=== PATIENT | female | born 1930 | race African-American/Black ===

== ENCOUNTER 2016-08-26 02:10 | Emergency (ER) | payer OTHER, MEDICAID ==
[~2016-08-26] VITALS: Ht 170.2 cm; Wt 71.0 kg
[~2016-08-26 02:10] MED LIST: INSU100V3
[2016-08-26 02:45] VITALS: BP 120/65
[2016-08-26 03:22] LABS: BASOPHILS % 0.8 % (0.0-2.0); EOSINOPHILS % 5.5 % (0.0-5.0); HEMATOCRIT. 33.8 % (36.0-48.0); HEMOGLOBIN. 11.1 g/dL (12.0-16.0); LYMPHOCYTES % 30.4 % (20.0-50.0); MEAN CORPUSCULAR HEMOGLOBIN 30.1 pg (28.0-32.0); MEAN CORPUSCULAR HGB CONC 32.9 g/dL (31.0-37.0); MEAN CORPUSCULAR VOLUME 91.4 fL (81.0-99.0); MEAN PLATELET VOLUME 9.7 fl (7.4-10.4); MONOCYTES % 6.7 % (2.0-8.0); NEUTROPHILS % 56.6 % (40.0-76.0); PLATELET 177 x1000/uL (130-400); RED CELL DISTRIBUTION WIDTH 15.8 % (11.6-14.6); WHITE BLOOD COUNT 5.6 x1000/uL (4.5-11.0)
[2016-08-26 03:30] LABS: ALANINE AMINOTRANSFERASE 19 IU/L (13-61); ALBUMIN 3.5 g/dL (3.4-5.0); ANION GAP 15; CALCIUM 8.2 mg/dL (8.5-10.1); CARBON DIOXIDE 31 mEq/L (21-32); CHLORIDE 98 mEq/L (98-107); INDEX HEMOLYSI 1 (1-3); INDEX ICTERIC 1 (1-4); INDEX LIPEMIC 1 (1-3); UREA NITROGEN BLOOD 50 mg/dL (7-21); eGFR 6 mL/min (>60)
== END 2016-08-26 03:35 | disposition home or self-care (01) ==
LOC: ER 02:10
DX: R51 Headache (principal); I12.0 Hypertensive chronic kidney disease with stage 5 chronic kidney disease or end stage renal disease; N18.6 End stage renal disease; Z99.2 Dependence on renal dialysis; E11.22 Type 2 diabetes mellitus with diabetic chronic kidney disease; Z88.6 Allergy status to analgesic agent; Z79.899 Other long term (current) drug therapy
CPT/HCPCS: 36415; 71010; 80053; 85025; 93005; 99285

== ENCOUNTER 2016-09-07 09:55 | Emergency (ER) | payer OTHER, MEDICAID ==
[~2016-09-07] VITALS: Ht 165.1 cm; Wt 68.0 kg
[2016-09-07 10:53] LABS: HEMATOCRIT. 24.6 % (36.0-48.0); HEMOGLOBIN. 8.2 g/dL (12.0-16.0); MEAN CORPUSCULAR HEMOGLOBIN 29.9 pg (28.0-32.0); MEAN CORPUSCULAR HGB CONC 33.3 g/dL (31.0-37.0); MEAN CORPUSCULAR VOLUME 89.9 fL (81.0-99.0); MEAN PLATELET VOLUME 7.9 fl (7.4-10.4); PLATELET 231 x1000/uL (130-400); RED BLOOD CELL COUNT 2.73 mill/uL (4.2-5.4); RED CELL DISTRIBUTION WIDTH 16.4 % (11.6-14.6); WHITE BLOOD COUNT 9.5 x1000/uL (4.5-11.0)
[2016-09-07 10:55] LABS: DIFFERENTIAL COMMENT 1
[2016-09-07 11:04] LABS: ALANINE AMINOTRANSFERASE 37 IU/L (13-61); ALBUMIN 2.4 g/dL (3.4-5.0); ANION GAP 18; CALCIUM 8.5 mg/dL (8.5-10.1); CARBON DIOXIDE 27 mEq/L (21-32); CHLORIDE 99 mEq/L (98-107); INDEX HEMOLYSI 1 (1-3); INDEX ICTERIC 1 (1-4); INDEX LIPEMIC 1 (1-3); UREA NITROGEN BLOOD 18 mg/dL (7-21); eGFR 14 mL/min (>60)
[2016-09-07 11:05] LABS: PROTHROMBIN TIME 10.7 sec
[2016-09-07 11:09] LABS: NT PRO B-TYPE NATRIURETIC PEP 11716 pg/mL (5-125); TROPONIN I 0.21 ng/mL (0.00-0.04)
[2016-09-07 11:25] LABS: ANISOCYTOSIS 1+; NUCLEATED RED BLOOD CELLS 1 /100 WBC; PLATELET ESTIMATE NORMAL
[2016-09-07] MEDS ORDERED: CLONIDINE 0.1MG TABLET PO ONE (15:15)
[2016-09-07 15:41] VITALS: BP 156/78
== END 2016-09-07 15:45 | disposition home or self-care (01) ==
LOC: ER 12:03
DX: R00.0 Tachycardia, unspecified (principal); E11.9 Type 2 diabetes mellitus without complications; I12.9 Hypertensive chronic kidney disease with stage 1 through stage 4 chronic kidney disease, or unspecified chronic kidney disease; Z99.2 Dependence on renal dialysis; Z90.710 Acquired absence of both cervix and uterus; Z90.49 Acquired absence of other specified parts of digestive tract; Z88.5 Allergy status to narcotic agent; Z88.6 Allergy status to analgesic agent
CPT/HCPCS: 36415; 71010; 80053; 83880; 84484; 85025; 85610; 93005; 99285

== ENCOUNTER 2018-12-14 08:06 | Emergency (ER) | payer OTHER, MEDICAID ==
[~2018-12-14] VITALS: Ht 162.6 cm; Wt 65.0 kg
[2018-12-14 10:41] LABS: BASOPHILS % 0.6 % (0.0-2.0); EOSINOPHILS % 3.7 % (0.0-5.0); HEMATOCRIT. 36.7 % (36.0-48.0); HEMOGLOBIN. 12.3 g/dL (12.0-16.0); LYMPHOCYTES % 29.3 % (20.0-50.0); MEAN CORPUSCULAR VOLUME 89.5 fL (81.0-99.0); MEAN PLATELET VOLUME 9.2 fl (7.4-10.4); MONOCYTES % 6.2 % (2.0-8.0); NEUTROPHILS % 60.2 % (40.0-76.0); PLATELET 170 x1000/uL (130-400); RED CELL DISTRIBUTION WIDTH 16.1 % (11.6-14.6)
[2018-12-14 10:44] LABS: CHLORIDE 102 mEq/L (98-107)
[2018-12-14 11:40] VITALS: BP 170/77
== END 2018-12-14 12:55 | disposition short-term general hospital (02) ==
LOC: ER 08:06 → CANBEDREQ 13:53
DX: R55 Syncope and collapse (principal); E11.22 Type 2 diabetes mellitus with diabetic chronic kidney disease; I12.0 Hypertensive chronic kidney disease with stage 5 chronic kidney disease or end stage renal disease; N18.6 End stage renal disease; Z99.2 Dependence on renal dialysis; Z90.49 Acquired absence of other specified parts of digestive tract; Z90.710 Acquired absence of both cervix and uterus
CPT/HCPCS: 36415; 71045; 84484; 93005; 99285

== ENCOUNTER 2020-07-26 09:27 | Inpatient (IN) | payer OTHER, MEDICAID ==
[2020-07-26] VITALS (14 sets, daily range): BP systolic 137–180; BP diastolic 67–89
[~2020-07-26] VITALS: Ht 165.1 cm; Wt 65.8 kg
[2020-07-26 10:06] LABS: BASOPHILS % 1.2 % (0.0-2.0); EOSINOPHILS % 4.9 % (0.0-5.0); HEMATOCRIT. 39.5 % (36.0-48.0); HEMOGLOBIN. 13.1 g/dL (12.0-16.0); LYMPHOCYTES % 27.8 % (20.0-50.0); MEAN CORPUSCULAR HEMOGLOBIN 30.1 pg (28.0-32.0); MEAN PLATELET VOLUME 10.4 fl (7.4-10.4); MONOCYTES % 5.5 % (2.0-8.0); NEUTROPHILS % 60.6 % (40.0-76.0); PLATELET 198 x1000/uL (130-400); RED BLOOD CELL COUNT 4.34 mill/uL (4.2-5.4); RED CELL DISTRIBUTION WIDTH 16.1 % (11.6-14.6)
[2020-07-26 10:14] LABS: CHLORIDE 103 mEq/L (98-107)
[2020-07-26 10:15] LABS: INR 1.1; PROTHROMBIN TIME 11.3 sec (9.6-11.0)
[2020-07-26 10:18] LABS: ETHANOL BLOOD < 10 mg/dL
[2020-07-26 10:21] LABS: LDL CHOLESTEROL 64 mg/dL (5-100)
[2020-07-26] MEDS ORDERED: WATER FOR INJECTION STERILE IV NR (10:45)
[2020-07-26] MEDS ORDERED: ALTEPLASE IV NR (10:45)
[2020-07-26] MEDS ORDERED: ALTEPLASE 100MG/VIAL IV NR (10:45)
[2020-07-26] MEDS ORDERED: *NO ASPIRIN X 24 HOURS XX SCH (11:00)
[2020-07-26] MEDS ORDERED: IOHEXOL-300 100 ML BOTTLE ONE (13:02)
[2020-07-26] MEDS ORDERED: ACETAMINOPHEN 325MG TABLET PO PRN (18:15)
[2020-07-26] MEDS ORDERED: DIPHENHYDRAMINE 50MG/ML VIAL IV PRN (18:15)
[2020-07-26] MEDS ORDERED: MAGNESIUM/ALUMINUM HYDROXIDE/SIMETHICONE 30ML UDC PO PRN (18:15)
[2020-07-26] MEDS ORDERED: ONDANSETRON HCL 4MG/2ML INJ IV PRN (18:15)
[2020-07-26] MEDS ORDERED: AMLO10TA80 MT (18:53)
[2020-07-26] MEDS ORDERED: ASCO125T PO (18:53)
[2020-07-26] MEDS ORDERED: LISI-186 MT (18:53)
[2020-07-26] MEDS: FAMOTIDINE 20MG TABLET PO SCH (21:00)
[2020-07-26] MEDS: SODIUM CHLORIDE 0.9% INJ 3ML FLUSH IVF SCH (22:00)
[2020-07-27] VITALS (63 sets, daily range): BP systolic 112–178; BP diastolic 53–108
[2020-07-27] MEDS ORDERED: DEXTROSE 50% WATER 50ML SYRINGE IV PRN (10:15)
[2020-07-27] MEDS: BLOOD SUGAR DIAGNOSTIC STRIP TEST SCH ×2 (12:11→17:06)
[2020-07-27] MEDS: INSULIN LISPRO 100 UNITS/ML SUBCUT SCH ×2 (12:40→17:17)
[2020-07-27] MEDS: SODIUM CHLORIDE 0.9% INJ 3ML FLUSH IVF SCH ×2 (14:00→22:00)
[2020-07-27] MEDS: ACETAMINOPHEN 325MG TABLET PO PRN ×2 (17:17→18:35)
[2020-07-27] MEDS: AMLODIPINE 5MG TABLET PO SCH (22:11)
[2020-07-27] MEDS: FAMOTIDINE 20MG TABLET PO SCH (22:14)
[2020-07-28] VITALS (66 sets, daily range): BP systolic 114–199; BP diastolic 52–123
[2020-07-28 05:44] LABS: BASOPHILS % 0.4 % (0.0-2.0); EOSINOPHILS % 5.7 % (0.0-5.0); HEMATOCRIT. 39.4 % (36.0-48.0); HEMOGLOBIN. 12.7 g/dL (12.0-16.0); LYMPHOCYTES % 33.4 % (20.0-50.0); MEAN CORPUSCULAR HEMOGLOBIN 29.3 pg (28.0-32.0); MEAN CORPUSCULAR VOLUME 91.5 fL (81.0-99.0); MEAN PLATELET VOLUME 8.9 fl (7.4-10.4); MONOCYTES % 6.7 % (2.0-8.0); NEUTROPHILS % 53.8 % (40.0-76.0); PLATELET 196 x1000/uL (130-400); RED BLOOD CELL COUNT 4.31 mill/uL (4.2-5.4); RED CELL DISTRIBUTION WIDTH 16.3 % (11.6-14.6)
[2020-07-28] MEDS: AMLODIPINE 5MG TABLET PO SCH ×2 (07:58→21:36)
[2020-07-28] MEDS: ACETAMINOPHEN 325MG TABLET PO PRN (07:58)
[2020-07-28] MEDS: ASPIRIN 81MG EC TABLET PO SCH (09:49)
[2020-07-28] MEDS: FAMOTIDINE 20MG TABLET PO SCH (21:35)
[2020-07-29] VITALS (12 sets, daily range): BP systolic 99–164; BP diastolic 52–102
[2020-07-29 05:52] LABS: BASOPHILS % 0.4 % (0.0-2.0); EOSINOPHILS % 3.7 % (0.0-5.0); HEMOGLOBIN. 11.8 g/dL (12.0-16.0); LYMPHOCYTES % 28.1 % (20.0-50.0); MEAN CORPUSCULAR HEMOGLOBIN 29.4 pg (28.0-32.0); MEAN CORPUSCULAR VOLUME 90.2 fL (81.0-99.0); MEAN PLATELET VOLUME 9.1 fl (7.4-10.4); MONOCYTES % 5.8 % (2.0-8.0); PLATELET 187 x1000/uL (130-400); RED CELL DISTRIBUTION WIDTH 16.7 % (11.6-14.6)
[2020-07-29] MEDS: ASPIRIN 81MG EC TABLET PO SCH (08:22)
[2020-07-29] MEDS: AMLODIPINE 5MG TABLET PO SCH ×2 (08:22→21:00)
[2020-07-29] MEDS: FAMOTIDINE 20MG TABLET PO SCH (21:45)
[2020-07-30] VITALS (7 sets, daily range): BP systolic 97–156; BP diastolic 59–104
[2020-07-30] MEDS: ASPIRIN 81MG EC TABLET PO SCH ×2 (08:29→09:00)
[2020-07-30] MEDS: AMLODIPINE 5MG TABLET PO SCH ×2 (08:29→21:00)
[2020-07-30] MEDS: FAMOTIDINE 20MG TABLET PO SCH (21:00)
== END 2020-07-30 23:18 | disposition short-term general hospital (02) | DRG 61 ==
LOC: ER 09:49 → CVICU 13:14 → ENRESERV 14:05 → 6WST 07-29 05:15
PROVIDERS: ADMIT Internal Medicine; ATTEND Internal Medicine
PROC: 3E03317 Introduction of Other Thrombolytic into Peripheral Vein, Percutaneous Approach (ICD-10-PCS; 2020-07-26)
PROC: 4A10X4Z Monitoring of Central Nervous Electrical Activity, External Approach (ICD-10-PCS; principal; 2020-07-29)
PROC: 5A1D70Z Performance of Urinary Filtration, Intermittent, Less than 6 Hours Per Day (ICD-10-PCS; 2020-07-29)
DX: I63.9 Cerebral infarction, unspecified (principal); G93.41 Metabolic encephalopathy; N18.6 End stage renal disease; D68.59 Other primary thrombophilia; I13.11 Hypertensive heart and chronic kidney disease without heart failure, with stage 5 chronic kidney disease, or end stage renal disease; R47.01 Aphasia; R53.1 Weakness; E11.22 Type 2 diabetes mellitus with diabetic chronic kidney disease; E78.00 Pure hypercholesterolemia, unspecified; E78.5 Hyperlipidemia, unspecified; E89.0 Postprocedural hypothyroidism; M24.562 Contracture, left knee; M19.90 Unspecified osteoarthritis, unspecified site; H51.8 Other specified disorders of binocular movement; M24.561 Contracture, right knee; Z20.822 Contact with and (suspected) exposure to COVID-19; I48.91 Unspecified atrial fibrillation; Z90.49 Acquired absence of other specified parts of digestive tract; Z90.710 Acquired absence of both cervix and uterus; Z99.2 Dependence on renal dialysis; Z88.6 Allergy status to analgesic agent; Z88.8 Allergy status to other drugs, medicaments and biological substances; Z79.4 Long term (current) use of insulin; Z79.899 Other long term (current) drug therapy
CPT/HCPCS: 36415; 70496; 70498; 70551; 71045; 80048; 80053; 80320; 82962; 83036; 83721; 84100; 84484; 85025; 87426; 92523; 92610; 93005; 93970; 95816; 97166; 97530; 99291; J1815; J2997; Q9967; A4315; G0480